=== PATIENT | male | born 1995 | race Caucasian/White ===

== ENCOUNTER 2017-01-06 17:45 | Emergency (ER) | payer OTHER ==
--- NOTE | 2017-01-06 18:29 | DIAGNOSTIC IMAGING REPORT ---
PROCEDURE: XR MANDIBLE COMPLETE INDICATION: Possible of mandibular dislocation. TECHNIQUE: Five views of the mandible are acquired. COMPARISON: None. FINDINGS: The patient is in the open mouth position. Osseous structures are normal and there is no evidence of fracture. [id number]: 1. Open mouth position may be positional, although meniscal dislocation might be considered. 2. Otherwise negative mandible. No evidence of fracture. 3. Findings discussed with Dr. Yoandy Duran.
--- NOTE | 2017-01-06 18:29 | DIAGNOSTIC IMAGING REPORT ---
PROCEDURE: XR MANDIBLE COMPLETE INDICATION: Possible of mandibular dislocation. TECHNIQUE: Five views of the mandible are acquired. COMPARISON: None. FINDINGS: The patient is in the open mouth position. Osseous structures are normal and there is no evidence of fracture. [id number]: 1. Open mouth position may be positional, although meniscal dislocation might be considered. 2. Otherwise negative mandible. No evidence of fracture. 3. Findings discussed with Dr. Yoandy Duran.
--- NOTE | 2017-01-06 18:53 | ED NURSING NOTES ---
Clinical Report - Nurses [facility] [address] [place] [address] 01/06/2017 17:48 Patient: JOHNATHAN MARAVILLA TRIAGE Triage time 1750. Acuity: LEVEL 4. Chief Complaint: (jaw). Alert. No acute distress. (in pain). --17:57 Shweta Hidalgo 17:54 01/06/17. BP: 129/84. HR: 65. RR: 18. O2 saturation: 100%. Temp: 98.4 F. Pain level now 710. --17:57 Shweta Hidalgo. Weight: 95.2 kg. Height/Length: 70 inches. BMI: 30.1. --17:53 Shweta Hidalgo. Medications None. --17:55 Shweta Hidalgo. Allergies No Known Drug Allergy. --17:56 Shweta Hidalgo. History Arrived by private vehicle. Historian: patient. Accompanied by family. This occurred just prior to arrival. Mechanism of injury: (dislocation). ( hx of dislocated jaw in past, today occurred while yawning). 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 SOCIAL HX: Never smoker. Occasional alcohol use. --17:57 Shweta Hidalgo. Interventions ID band on patient. To treatment room. --17:57 Shweta Hidalgo. PHYSICAL ASSESSMENT GENERAL / NEURO / PSYCH: Alert. Oriented X 4. Appears in pain. HEENT: Right mandible: tenderness, swelling and deformity. Malocclusion present. Left mandible: tenderness and deformity. Malocclusion present. Pupils equal, round and reactive to light. EOM intact. Ear within normal limits. Mouth within normal limits upon inspection. Voice within normal limits. No nasal injury noted. No dental injury noted. Mucous membranes are pink. RESPIRATORY: Respirations not labored. CVS: Capillary refill less than 2 seconds. BACK: No neck or back tenderness. ROM normal to the neck and back. SKIN: Skin is warm and dry. --17:58 Shweta Hidalgo <<STRICKEN ENTRY-- To room via stretcher. --17:58 Shweta Hidalgo --END STRIKE>> Correction --17:58 Shweta Hidalgo Ambulatory to room. --17:58 Shweta Hidalgo. NURSING PROGRESS NOTES Call light placed in reach. Bed placed in lowest position. Brakes of bed on. --17:59 Shweta Hidalgo 18:24 01/06/2017 Site #1 started via IV in the left antecubital space with an 22g angiocath, with good blood return; one attempt. Saline lock flushed with 10 mL saline. --18:39 Shweta Hidalgo 18:24 01/06/2017 Started bag #1 1000 mL IV Fluids IV NS (Saline); at 150 mL/hr over 4 hour(s) via site #1 --18:39 Shweta Hidalgo 18:25 01/06/2017 Dilaudid (HYDROmorphone HCl PF) IVP 0.5 mg given. via site #1. Allergies verified, confirmed 5 rights and sedative warning given to the patient and patient's family. IV patency established. IV site checked: no pain, redness, or swelling. IV flushed thoroughly pre- and post-medication administration. IVP given by RN. --18:40 Shweta Hidalgo 18:25 01/06/2017 Ativan (LORazepam) IVP 0.5 mg given. via site #1. Allergies verified, confirmed 5 rights and sedative warning given to the patient and patient's family. IV patency established site checked: no pain, redness, or swelling flushed thoroughly pre- and post-medication administration. IVP given by RN. --18:40 Shweta Hidalgo 18:43 01/06/2017 Dilaudid (HYDROmorphone HCl PF) IVP 0.5 mg given. via site #1. Allergies verified, confirmed 5 rights and sedative warning given to the patient and patient's family. IV patency established. IV site checked: no pain, redness, or swelling. IV flushed thoroughly pre- and post-medication administration. IVP given by RN. --18:43 Shweta Hidalgo 18:43 01/06/2017 Ativan (LORazepam) IVP 0.5 mg given. via site #1. Allergies verified, confirmed 5 rights and sedative warning given to the patient. IV patency established. IV site checked: no pain, redness, or swelling. IV flushed thoroughly pre- and post-medication administration. IVP given by RN. --18:43 Shweta Hidalgo ( C collar has been placed. Pt stated it is comfortable.). --18:53 Dwight Silva R.N. 18:52 01/06/17. BP: 142/77. HR: 79. RR: 15. O2 saturation: 100%. Pain level now 10/28. --18:53 Dwight Silva R.N. DISPOSITION / DISCHARGE 19:12 01/06/2017 Site #1 removed upon discharge. Pressure dressing applied. --19:12 Shweta Hidalgo Departure time: 1909. Condition at departure: improved and stable. No learning barriers present. Discharge instructions provided and reviewed with the parent. Discharge instructions not provided and reviewed with the patient. Reviewed medication(s). Family verbalized understanding. Patient did not verbalize understanding. Written instructions provided in Indian. The patient was discharged by the physician. He was discharged home and accompanied by parent. He left the Emergency Department ambulatory and via private vehicle. Parent driving. --19:13 Shweta Hidalgo. Locked/Released at 01/06/2017 19:13 by Shweta Hidalgo,
--- NOTE | 2017-01-06 18:53 | ED CLINICAL REPORT ---
Clinical Report - Physicians/Mid Levels [facility] [address] [place] [place] [address] 01/06/2017 17:48 Patient: JOHNATHAN MARAVILLA Time Seen: 17:55 Jan 06 2017. Arrived- By private vehicle. Historian- patient. CPT: ER phys charges level 5 plus (#[id number]) (charge for dislocated mandible and reduction.). HISTORY OF PRESENT ILLNESS Chief Complaint: INJURY TO FACE. The injury occurred just prior to arrival. ( Yawned and left TMJ popped out. Now cannot close mouth.). Occurred on a street. The patient complains of moderate pain. No blow to the head or neck pain. REVIEW OF SYSTEMS No numbness, chest pain, laceration, fever or sinus pain. No mouth sores, sore throat, toothache, diabetic symptoms or easy bruising. All systems otherwise negative, except as recorded above. PAST HISTORY Dislaocated left TMJ 2014: due to yawn. May have had childhood trauma that predisposed him to dislocation. Medications: None. Allergies: No Known Drug Allergy. SOCIAL HISTORY Never smoker. Occasional alcohol use. No drug use. ADDITIONAL NOTES The nursing notes have been reviewed. PHYSICAL EXAM Vital Signs: 01/06/2017 17:54 BP: 129/84. HR: 65. RR: 18. O2 saturation: 100%. Temp: 98.4 F. Appearance: Alert. Appears to be in pain. Patient in moderate distress. Head: Left mandible: moderate tenderness and mild swelling and deformity of the TM joint of the left mandible (Cannot close mouth.). Moderate malocclusion. ENT: No dental injury. Pharynx normal. Neck: Painless ROM. Non-tender. CVS: Normal heart rate and rhythm. Heart sounds normal. Respiratory: Breath sounds normal. Abdomen: Soft and nontender. Skin: Skin intact. Skin warm. Extremities: Extremities atraumatic. Neuro: Oriented X 3. Mood/affect normal. No motor deficit. No sensory deficit. LABS, X-RAYS, AND EKG X-Rays: Mandible. Mandible X-rays: No fracture present. (Radiologist cannot determine if left TMJ is dislocated.). Views: 5 view mandible series. Technique: good. The X-rays were independently viewed by me, interpreted by the radiologist and discussed with the radiologist. PROGRESS AND PROCEDURES PROCEDURES (Procedure: Left TMJ Reduction: Indication : Dislocated left TMJ. Pain control as noted below. X-ray confirmed no fracture. Using the syringe method, a 10 cc syringe was placed between the left posterior molars and extended out of the mouth laterally. The pt bit down on the syringe. The syringe was then rotated towards the TMJ until the mandibular condyle moved on top of the articular prominence. At this point the syringe was rotated away from the TMJ and the condyle easily reduced into the fossa. Pt had great pain relief with reduction. Teeth now were aligned. Palpation of the TMJ's now showed symmetry. Pt now had symmetric motion of the jaw and he could now close his mouth.). Course of Care: IV NS Dilaudid 0.5 mg IV times 2 Ativan 0.5 mg IV times 2. Soft collar placed to prevent jaw opening. Patient/family counseled. Disposition: Discharged. Condition: stable and improved. CLINICAL IMPRESSION Dislocated left TMJ. Now reduced. INSTRUCTIONS Apply ice for 15-20 minutes three times a day for one days. Wear soft neck collar for one weeks until released. (Keep mouth closed as much as possible. Eat soft foods and small bites.). Warnings: SEDATIVE MEDICATION: You were given sedative medication during your visit. Do not drive or operate dangerous machinery. GENERAL WARNINGS: Return or contact your physician immediately if your condition worsens or changes unexpectedly, if not improving as expected, or if other problems arise. Prescription Medications: Hydrocodone/APAP 5mg/325mg: take 1 to 2 orally every 6 hours as needed for pain. Dispense fifteen (15). No refills. Ibuprofen 600mg tablets: take 1 tablet orally every 8 hours as needed for pain. Dispense thirty (30). No refills. Robaxin 750 mg: Take 2 orally every 6 hours as needed for muscle spasm. Dispense thirty (30). No refills. Substitution is permissible. Follow-up: Follow up with a specialist Maxillofacial surgeon. in one week. Call for an appointment. Understanding of the discharge instructions verbalized by patient and parent. (Electronically signed by Yoandy Duran MD 01/12/2017 15:13)
--- NOTE | 2017-01-06 18:53 | ED ORDER SUMMARY ---
..... Patient: JOHNATHAN MARAVILLA OrderSheet [facility] VisitID: [id number] [address] [place] [address] 21y, M Registration Date/Time: 01/06/2017 ORDER SHEET Weight: 95.2 kg Allergies: No Known Drug Allergy GENERAL ORDERS: Mandible Complete Urgent (18:05 01/06/2017 Naa MCNALLY) (k 18:11 [facility]) (18:22 [facility]) MEDICATION ORDERS: IV FLUIDS: IV NS : initial bolus none -, then 150 mL/hr for 4h (NOW); Routine (18:01/06/2017 Naa MCNALLY) (18:39 [place]) Dilaudid IV 0.5 mg (NOW) (18:01/06/2017 Naa MCNALLY) (18:40 [place]) Ativan IV 0.5 mg (NOW) (18:06 01/06/2017 Naa MCNALLY) (18:40 [place]) Dilaudid IV 0.5 mg (NOW) (18:41 01/06/2017 [place] verbal order read back to Naa MCNALLY) (18:43 [place]) Ativan IV 0.5 mg (NOW) (18:41 01/06/2017 [place] verbal order read back to Naa MCNALLY) (18:43 [place]) ORDER SHEET NOTES: [Electronically signed by Shweta Hidalgo (19:13 01/06/2017)] [Electronically signed by Yoandy Duran MD (15:13 01/12/2017)] [Electronically locked/signed by Shweta Hidalgo (19:13 01/06/2017)]
--- NOTE | 2017-01-06 18:53 | ED ORDER SUMMARY ---
..... Patient: JOHNATHAN MARAVILLA OrderSheet [facility] VisitID: [id number] [address] [place] [address] 21y, M Registration Date/Time: 01/06/2017 ORDER SHEET Weight: 95.2 kg Allergies: No Known Drug Allergy GENERAL ORDERS: Mandible Complete Urgent (18:05 01/06/2017 Naa MCNALLY) (k 18:11 [facility]) (18:22 [facility]) MEDICATION ORDERS: IV FLUIDS: IV NS : initial bolus none -, then 150 mL/hr for 4h (NOW); Routine (18:01/06/2017 Naa MCNALLY) (18:39 [place]) Dilaudid IV 0.5 mg (NOW) (18:01/06/2017 Naa MCNALLY) (18:40 [place]) Ativan IV 0.5 mg (NOW) (18:06 01/06/2017 Naa MCNALLY) (18:40 [place]) Dilaudid IV 0.5 mg (NOW) (18:41 01/06/2017 [place] verbal order read back to Naa MCNALLY) (18:43 [place]) Ativan IV 0.5 mg (NOW) (18:41 01/06/2017 [place] verbal order read back to Naa MCNALLY) (18:43 [place]) ORDER SHEET NOTES: [Electronically signed by Shweta Hidalgo (19:13 01/06/2017)] [Electronically signed by Yoandy Duran MD (15:13 01/12/2017)] [Electronically locked/signed by Shweta Hidalgo (19:13 01/06/2017)]
--- NOTE | 2017-01-12 15:13 | ED DISCHARGE INSTRUCTIONS ---
Patient: JOHNATHAN MARAVILLA General Instructions [facility] VisitID: [id number] [place] [address] 21y, M Registration Date/Time: 01/06/2017 Dislocated left TMJ. Now reduced. INSTRUCTIONS Apply ice for 15-20 minutes three times a day for one days. Wear soft neck collar for one weeks until released. (Keep mouth closed as much as possible. Eat soft foods and small bites.). Warnings: SEDATIVE MEDICATION: You were given sedative medication during your visit. Do not drive or operate dangerous machinery. GENERAL WARNINGS: Return or contact your physician immediately if your condition worsens or changes unexpectedly, if not improving as expected, or if other problems arise. Prescription Medications: Hydrocodone/APAP 5mg/325mg: take 1 to 2 orally every 6 hours as needed for pain. Dispense fifteen (15). No refills. Ibuprofen 600mg tablets: take 1 tablet orally every 8 hours as needed for pain. Dispense thirty (30). No refills. Robaxin 750 mg: Take 2 orally every 6 hours as needed for muscle spasm. Dispense thirty (30). No refills. Substitution is permissible. Follow-up: Follow up with a specialist Maxillofacial surgeon. in one week. Call for an appointment. Understanding of the discharge instructions verbalized by patient and parent. ADDITIONAL INFORMATION Cervical Collar A cervical collar is used to provide support and limit movement of the neck. It is usually provided after a moderate to severe neck sprain. Home Use: Unless told otherwise, the collar should be worn whenever you are out of bed. It may be taken off for sleep and for bathing. When lying down, support your neck with a small pillow or rolled up towel under the neck. When adjusting your pillows, try to keep the neck in a neutral position (in line with the upper back). Pillows should not be so thick as to bend your head forward. Do not wear the collar longer than advised by your doctor. This may lead to further stiffness from lack of neck movement. Get Prompt Medical Attention if any of the following occur: Increasing pain in the neck Weakness or numbness in the arms or hands Pain spreading from the neck into the shoulder or arms Fever of 100.4F(38C) or higher, or as directed by your healthcare provider You have been given the following additional information: Cervical Collar (Electronically signed by Yoandy Duran MD 01/12/2017 15:13)
--- NOTE | 2017-01-12 15:13 | ED MED RECONCILIATION SUMMARY ---
Patient: JOHNATHAN MARAVILLA Medication Reconciliation Report [facility] VisitID: [id number] [address] [place] [address] 21y, M Registration Date/Time: 01/06/2017 Weight: 95.2 kg Height/Length: 70 in. BMI: 30.1 ALLERGIES: No Known Drug Allergy The patient's Home Medications are listed below: NONE. The source(s) of the original Home Medication information: Not obtained. The following Medications were given to the patient in the Emergency Department: IV NS IV Fluids bolus 0, then 150 mL/hr, administered: 01/06/2017 6:24:00 PM Dilaudid [IVP] IVP 0.5 mg, administered: 01/06/2017 6:25:00 PM Ativan [IVP] IVP 0.5 mg, administered: 01/06/2017 6:25:00 PM Dilaudid [IVP] IVP 0.5 mg, administered: 01/06/2017 6:43:00 PM Ativan [IVP] IVP 0.5 mg, administered: 01/06/2017 6:43:00 PM The following Medications were prescribed to the patient: Hydrocodone/APAP 5mg/325mg: take 1 to 2 orally every 6 hours as needed for pain. Dispense fifteen (15). No refills. -- Yoandy Duran MD Ibuprofen 600mg tablets: take 1 tablet orally every 8 hours as needed for pain. Dispense thirty (30). No refills. -- Yoandy Duran MD Robaxin 750 mg: Take 2 orally every 6 hours as needed for muscle spasm. Dispense thirty (30). No refills. Substitution is permissible. -- Yoandy Duran MD
--- NOTE | 2017-01-12 15:13 | ED MAR SUMMARY ---
..... Medication Administration Record [facility] [address] [place] [address] Patient: JOHNATHAN MARAVILLA Visit ID: [id number] 21y, M Weight: 95.2 kg Height/Length: 70 in BMI: 30.1 ALLERGIES: No Known Drug Allergy Start 18:24 01/06/2017 Shweta Hidalgo, Medication Administered: IV NS (SALINE), Dose: IV Fluids over 4 hour(s), Rate: 150 mL/hr, Dispensed: 1000 mL bag, Site: #1 left AC. Medication Ordered: IV NS : initial bolus none -, then 150 mL/hr for 4h (NOW); Routine. Given :01/06/2017 Shweta Hidalgo, Medication Administered: DILAUDID [IVP] (HYDROMORPHONE HCL PF), Dose: 0.5 mg IVP, Site: #1 left AC. Medication Ordered: Dilaudid IV 0.5 mg (NOW). Given :01/06/2017 Shweta Hidalgo, Medication Administered: ATIVAN [IVP] (LORAZEPAM), Dose: 0.5 mg IVP, Site: #1 left AC. Medication Ordered: Ativan IV 0.5 mg (NOW). Given :01/06/2017 Shweta Hidalgo, Medication Administered: DILAUDID [IVP] (HYDROMORPHONE HCL PF), Dose: 0.5 mg IVP, Site: #1 left AC. Medication Ordered: Dilaudid IV 0.5 mg (NOW). Given :01/06/2017 Shweta Hidalgo, Medication Administered: ATIVAN [IVP] (LORAZEPAM), Dose: 0.5 mg IVP, Site: #1 left AC. Medication Ordered: Ativan IV 0.5 mg (NOW).
--- NOTE | 2017-01-12 15:13 | ED MED RECONCILIATION SUMMARY ---
Patient: JOHNATHAN MARAVILLA Medication Reconciliation Report [facility] VisitID: [id number] [address] [place] [address] 21y, M Registration Date/Time: 01/06/2017 Weight: 95.2 kg Height/Length: 70 in. BMI: 30.1 ALLERGIES: No Known Drug Allergy The patient's Home Medications are listed below: NONE. The source(s) of the original Home Medication information: Not obtained. The following Medications were given to the patient in the Emergency Department: IV NS IV Fluids bolus 0, then 150 mL/hr, administered: 01/06/2017 6:24:00 PM Dilaudid [IVP] IVP 0.5 mg, administered: 01/06/2017 6:25:00 PM Ativan [IVP] IVP 0.5 mg, administered: 01/06/2017 6:25:00 PM Dilaudid [IVP] IVP 0.5 mg, administered: 01/06/2017 6:43:00 PM Ativan [IVP] IVP 0.5 mg, administered: 01/06/2017 6:43:00 PM The following Medications were prescribed to the patient: Hydrocodone/APAP 5mg/325mg: take 1 to 2 orally every 6 hours as needed for pain. Dispense fifteen (15). No refills. -- Yoandy Duran MD Ibuprofen 600mg tablets: take 1 tablet orally every 8 hours as needed for pain. Dispense thirty (30). No refills. -- Yoandy Durna MD Robaxin 750 mg: Take 2 orally every 6 hours as needed for muscle spasm. Dispense thirty (30). No refills. Substitution is permissible. -- Yoandy Duran MD
--- NOTE | 2017-01-12 15:13 | ED MAR SUMMARY ---
..... Medication Administration Record [facility] [address] [place] [address] Patient: JOHNATHAN MARAVILLA Visit ID: [id number] 21y, M Weight: 95.2 kg Height/Length: 70 in BMI: 30.1 ALLERGIES: No Known Drug Allergy Start 18:24 01/06/2017 Shweta Hidalgo, Medication Administered: IV NS (SALINE), Dose: IV Fluids over 4 hour(s), Rate: 150 mL/hr, Dispensed: 1000 mL bag, Site: #1 left AC. Medication Ordered: IV NS : initial bolus none -, then 150 mL/hr for 4h (NOW); Routine. Given :01/06/2017 Shweta Hidalgo, Medication Administered: DILAUDID [IVP] (HYDROMORPHONE HCL PF), Dose: 0.5 mg IVP, Site: #1 left AC. Medication Ordered: Dilaudid IV 0.5 mg (NOW). Given :01/06/2017 Shweta Hidalgo, Medication Administered: ATIVAN [IVP] (LORAZEPAM), Dose: 0.5 mg IVP, Site: #1 left AC. Medication Ordered: Ativan IV 0.5 mg (NOW). Given :01/06/2017 Shweta Hidalgo, Medication Administered: DILAUDID [IVP] (HYDROMORPHONE HCL PF), Dose: 0.5 mg IVP, Site: #1 left AC. Medication Ordered: Dilaudid IV 0.5 mg (NOW). Given :01/06/2017 Shweta Hidalgo, Medication Administered: ATIVAN [IVP] (LORAZEPAM), Dose: 0.5 mg IVP, Site: #1 left AC. Medication Ordered: Ativan IV 0.5 mg (NOW).
== END 2017-01-06 19:10 | disposition home or self-care (01) ==
LOC: ED SRH 17:45 → EDBD 17:48 → ED SRH 17:48
DX: S03.02XA Dislocation of jaw, left side, initial encounter (principal); X58.XXXA Exposure to other specified factors, initial encounter; Y93.89 Activity, other specified; Y99.9 Unspecified external cause status; Y92.410 Unspecified street and highway as the place of occurrence of the external cause